=== PATIENT | female | born 1945 | race Caucasian/White ===

== ENCOUNTER → 2023-10-06 14:15 | Outpatient (REF) | payer OTHER, SELFPAY | LOC: RAD 14:15 | PROVIDERS: ATTENDING PHYSICIAN Surgery Vascular Surgery; FAMILY PHYSICIAN Internal Medicine; REFERRING PHYSICIAN Internal Medicine Nephrology | DX: Z01.818 Encounter for other preprocedural examination (principal) | CPT/HCPCS: 93985 ==

== ENCOUNTER 2023-10-18 06:26 | Day surgery (SDC) | payer OTHER, SELFPAY ==
[2023-10-18] VITALS (15 sets, daily range): BP systolic 155–178; BP diastolic 53–68
[2023-10-18] MEDS: BACTROBAN NASAL 1 GRAM NASAL (07:07)
[2023-10-18] MEDS: NSS 500 IV (07:07)
[2023-10-18] MEDS: VANCOCIN 300 ML IV (07:08)
[2023-10-18] MEDS: VANCOCIN 300 MG IV (07:08)
--- NOTE | 2023-10-18 07:10 | W.SUR.PREOP ---
Pre-Operative Surgical Note
-
I have examined this patient prior to the performance of the scheduled procedure.
The patient's condition is unchanged from the time of the current History and
Physical and the patient is able to undergo the scheduled procedure.
[2023-10-18 07:27] LABS: Glucose - Point of Care 128 mg/dl (70-99)
[2023-10-18 07:45] LABS: Hematocrit 27.1 % (37.0-47.0); Hemoglobin 9.1 g/dL (12.0-16.0); Mean Corp Hgb Conc. 33.6 g/dL (33.0-37.0); Mean Corpuscular Hgb 31.1 pg (27.0-31.0); Mean Corpuscular Volume 92.5 fL (81.0-99.0); Mean Platelet Volume 10.2 fL (7.4-10.4); Platelet Count 179 10^3/uL (130-400); Red Blood Cell Count 2.93 10^6/uL (4.20-5.40); Red Cell Dist. Width 12.1 % (11.5-14.5); White Blood Cell Count 6.6 10^3/uL (4.8-10.8)
[2023-10-18 07:55] LABS: APTT 26.6 Sec (23.4-35.0); INR 0.95; PT 12.5 Sec (11.4-14.6)
[2023-10-18 08:05] LABS: Blood Urea Nitrogen 55 mg/dl (7-17); Calcium 9.8 mg/dl (8.4-10.2); Carbon Dioxide 23 mmol/L (22-30); Chloride 109 mmol/L (98-107); Estimated Creatinine Clearance 13 ml/min; Glucose 136 mg/dl (70-99); Potassium 4.2 mmol/L (3.5-5.1); Sodium 138 mmol/L (135-145); eGFR 10.37
--- NOTE | 2023-10-18 09:49 | OR.RPT ---
Operative Report
Operative Report
PROCEDURE DATE: 10/18/2023
Preoperative diagnosis: End-stage renal disease approaching hemodialysis
Postoperative diagnosis: Same
Procedure: Left upper extremity brachiocephalic arteriovenous fistula creation
Surgeon: Yosvany
Bruise Trimmer: SRI Lazaro, required for all aspects of procedure including assistance with traction/countertraction, following of suture line, assistance with closure.
Complications: None
Anesthesia: General
Indications for procedure:
Worsening chronic kidney disease stage V. Imminent dialysis. Therefore asked to perform permanent access creation. Risk/benefits/alternatives also discussed. Patient understood all wish to proceed.
Description of procedure:
Patient was identified brought to the operating room placed on the table in supine position. I performed duplex after the administration of anesthesia myself to confirm suitability of the upper arm cephalic vein. It was suitable, but there was
potentially a small web in the antecubital region.
After the adequate administration of anesthesia and perioperative antibiotics she was prepped and draped in the standard surgical fashion. A standard preoperative timeout was undertaken and everybody was in agreement the plan. A transverse
incision was made in the proximal volar aspect of the forearm just distal to the antecubital fossa. This was carried through skin subcutaneous tissue. The antecubital extension of the cephalic vein was identified and carefully dissected away from
surrounding structures and great care to avoid any injury to structures. There was a single deeper branch of the cephalic vein which was ligated between silk ties and then divided. As such I was able to mobilize a suitable length of cephalic
vein. Once I had done this I then deepened my dissection in the medial aspect of the incision site through the fascial layer. The brachial artery was carefully identified and carefully dissected away from surrounding structures take great care to
avoid injury to structures. I passed a vessel loop around approximately. Next I gave the patient 3000 units of intravenous heparin. I then ligated the cephalic vein distally in my field with a silk tie and a clip. I then transected it. I
distended under heparinized saline. It distended very well. I marked the anterior surface under distention to avoid any kinking or twisting. The small region of web noted in ultrasound prior, was addressed in my spatulation and I was able to
grasp it gently and pull it/tear duct. The vein was suitable size but just to be sure I ran a 3 mm dilator through which passed without any difficulty whatsoever. Next I tightened my doubly Vesseloops on the artery proximally and distally. I then
made an arteriotomy with 11 blade extended using a Azul scissor. I had spatulated the cephalic vein and sewed an end to side anastomosis using a running 6-0 Prolene suture. Prior to completing and tying down my suture line I backbled and forebled
the [place] artery. Next I released my bulldog clamp on the vein and then released my Vesseloops on the artery. There was an excellent thrill in the fistula. There was a palpable pulse at the wrist in the radial artery. At this point I was very
satisfied. I irrigated. I achieved and confirmed full hemostasis. I then closed in layers using 3-0 Vicryl deep dermal layer followed by 4-0 Monocryl subcuticular stitch. Dermabond was applied. The patient tolerated the procedure well.
[2023-10-18] MEDS: ZOFRAN 4 MG IV (10:04)
[2023-10-18 10:05] LABS: Glucose - Point of Care 161 mg/dl (70-99)
[2023-10-18] MEDS: TYLENOL 650 MG PO (12:23)
[2023-10-18 12:32] LABS: Glucose - Point of Care 143 mg/dl (70-99)
== END 2023-10-18 13:05 | disposition home or self-care (01) ==
LOC: CATH 06:26
PROVIDERS: ATTENDING PHYSICIAN Surgery Vascular Surgery; FAMILY PHYSICIAN Internal Medicine
DX: I12.0 Hypertensive chronic kidney disease with stage 5 chronic kidney disease or end stage renal disease (principal); E11.22 Type 2 diabetes mellitus with diabetic chronic kidney disease; N18.6 End stage renal disease; Z99.2 Dependence on renal dialysis; K21.9 Gastro-esophageal reflux disease without esophagitis; Z79.4 Long term (current) use of insulin; Z79.82 Long term (current) use of aspirin
CPT/HCPCS: 36821; 80048; 82962; 85027; 85610; 85730; 86850; 86900; 86901; 93005

== ENCOUNTER → 2023-12-20 09:59 | Outpatient (REF) | payer MEDICARE, SELFPAY | LOC: RAD 09:59 | PROVIDERS: ATTENDING PHYSICIAN Registered Nurse; FAMILY PHYSICIAN Internal Medicine; REFERRING PHYSICIAN Internal Medicine Nephrology | DX: I77.0 Arteriovenous fistula, acquired (principal) | CPT/HCPCS: 93990 ==

== ENCOUNTER → 2024-01-26 13:29 | Outpatient (REF) | payer MEDICARE, SELFPAY | LOC: DHVS 13:29 | PROVIDERS: ATTENDING PHYSICIAN Registered Nurse; FAMILY PHYSICIAN Internal Medicine | DX: N18.5 Chronic kidney disease, stage 5 (principal); I77.0 Arteriovenous fistula, acquired | CPT/HCPCS: 93990 ==

== ENCOUNTER 2024-02-21 08:04 | Day surgery (SDC) | payer MEDICARE, SELFPAY ==
[2024-02-21] VITALS (10 sets, daily range): BP systolic 151–168; BP diastolic 54–74; BMI 38.4
[2024-02-21 08:54] LABS: Hematocrit 32.8 % (37.0-47.0); Hemoglobin 11.1 g/dL (12.0-16.0); Mean Corp Hgb Conc. 33.8 g/dL (33.0-37.0); Mean Corpuscular Hgb 31.2 pg (27.0-31.0); Mean Corpuscular Volume 92.1 fL (81.0-99.0); Mean Platelet Volume 9.8 fL (7.4-10.4); Platelet Count 181 10^3/uL (130-400); Red Blood Cell Count 3.56 10^6/uL (4.20-5.40); Red Cell Dist. Width 14.3 % (11.5-14.5); White Blood Cell Count 5.9 10^3/uL (4.8-10.8)
[2024-02-21 09:03] LABS: INR 0.89
[2024-02-21 09:04] LABS: APTT 29.1 Sec (23.4-35.0)
[2024-02-21 09:35] LABS: Glucose - Point of Care 129 mg/dl (70-99)
--- NOTE | 2024-02-21 10:11 | W.SUR.POST ---
Surgical Immediate Post Op
Note
Pre Op Diagnosis: ESRD
Post Op Diagnosis: ESRD
Procedure Performed: LUE fistulagram, central venogram, balloon angioplasty proximal outflow stenosis
Primary Surgeon: Yosvany
Anesthesia: local and sedation
Estimated Blood Loss: <2cc
Fluids: see anesthesia flow sheet
Drains/Shunts: none
Specimens/Cultures: none
Doppler/Duplex/Angio (Y/N): Y
Complications: none
Operative Findings: +thrill
[2024-02-21 11:11] LABS: Glucose - Point of Care 131 mg/dl (70-99)
--- NOTE | 2024-02-21 15:53 | OR.RPT ---
Operative Report
Operative Report
PROCEDURE DATE: 02/21/2024
Preoperative diagnosis:
1. End-stage renal disease on hemodialysis.
2. Poorly maturing left upper extremity arteriovenous fistula.
Postoperative diagnosis: Same
Procedure:
1. Duplex assisted cannulation of left upper extremity arteriovenous fistula.
2. Fistulogram and central venogram.
3. Balloon angioplasty of proximal outflow vein stenosis with 5 mm and 6 mm angioplasty balloons.
4. Supervision and interpretation.
Surgeon: Yosvany
Fishing Captain: None
Complications: None
Anesthesia: Local, sedation
Fluoroscopy:
3.1 min
7 mGy
1.66 Gy.cm2
Indications for procedure:
Poorly maturing AV fistula, difficulty with cannulation. Ultrasound had suggested outflow vein stenosis in the proximal outflow vein just beyond the anastomosis. Therefore patient was brought for fistulogram. Risk/benefits/alternatives were all
fully discussed. Patient understood all wished to proceed.
Description of procedure:
Patient was identified, brought to the operating room. Placed on the table in the supine position. After the adequate administration of anesthesia, the patient was prepped and draped in the standard surgical fashion. A standard preoperative
timeout was undertaken and everybody was in agreement with the plan.
The left upper extremity AV fistula outflow vein (cephalic vein) was punctured in the mid upper arm in a peripheral facing direction. This was done with a micropuncture kit under direct duplex ultrasound guidance. A 5 Sy[place] sheath was then
advanced over a 0.035 inch wire. Fistulogram demonstrated patent outflow vein in the vicinity of the sheath and in the upper arm. The outflow vein had matured nicely throughout those segments and actually looked good with no significant stenosis.
My wire was getting held up in the region approaching the antecubital fossa. Of note when I punctured with ultrasound I noted that the vein was diseased and ratty in that segment. Therefore, I now used a flopping on hydrophilic wire and a glide
catheter to gain wire into the proximal brachial artery. I then advanced a glide catheter over the wire into the proximal brachial artery and obtained a arteriogram/fistulogram. This demonstrated patent arterial anastomosis of the vein with no
significant anastomotic stenosis. However about 1.5 cm beyond the anastomosis there was a segment of vein correlating to the area that I seen on ultrasound of significant stenosis. At this point, I exchanged for a 0.018 inch V18 wire. I then
performed balloon angioplasty of the stenotic segment with a 5 mm angioplasty balloon. I got this to profile nicely. However given the size of the remainder of the outflow vein on fistulogram I felt that I should now dilate up to a 6 mm balloon.
I therefore used a 6 mm balloon and angioplastied similarly. Completion angiogram now demonstrated excellent result with no significant residual stenosis. There is brisk flow into the fistula. Central venography demonstrated no evidence of
outflow or central venous stenosis otherwise. At this point is very satisfied. The wires and catheters were withdrawn. A 4-0 Monocryl pursestring stitch was placed around the sheath entry site and the sheath was withdrawn while the stitch was
tied down. Manual pressure was also applied to the puncture site. Hemostasis was fully achieved.
The patient tolerated procedure well.
== END 2024-02-21 12:07 | disposition home or self-care (01) ==
LOC: CATH 08:04
PROVIDERS: ATTENDING PHYSICIAN Surgery Vascular Surgery; FAMILY PHYSICIAN Internal Medicine; OTHER PHYSICIAN Internal Medicine Cardiovascular Disease; OTHER PHYSICIAN Internal Medicine Nephrology
DX: T82.858D Stenosis of other vascular prosthetic devices, implants and grafts, subsequent encounter (principal); Y83.2 Surgical operation with anastomosis, bypass or graft as the cause of abnormal reaction of the patient, or of later complication, without mention of misadventure at the time of the procedure; N18.6 End stage renal disease; I12.0 Hypertensive chronic kidney disease with stage 5 chronic kidney disease or end stage renal disease; E11.22 Type 2 diabetes mellitus with diabetic chronic kidney disease; Z99.2 Dependence on renal dialysis; Z79.82 Long term (current) use of aspirin; Z79.899 Other long term (current) drug therapy; Z79.4 Long term (current) use of insulin; Z85.528 Personal history of other malignant neoplasm of kidney
CPT/HCPCS: 36902; 76937; 82962; 85027; 85610; 85730; C1725; C1769; C1894; Q9967

== ENCOUNTER → 2024-04-12 10:07 | Outpatient (REF) | payer MEDICARE, SELFPAY | LOC: RAD 10:07 | PROVIDERS: ATTENDING PHYSICIAN Surgery Vascular Surgery; FAMILY PHYSICIAN Internal Medicine; OTHER PHYSICIAN Internal Medicine Nephrology | DX: I77.0 Arteriovenous fistula, acquired (principal) | CPT/HCPCS: 93990 ==